=== PATIENT | female | born 2000 | race Caucasian/White ===

== ENCOUNTER 2022-03-06 15:01 | Emergency (ER) | payer BC, SELFPAY ==
[2022-03-06 15:17] VITALS: BP 104/63; PULSE 102; RESP 18; TEMP 36.8; O2SAT 99; BMI 22.1
[2022-03-06 18:17] LABS: Basophils Absolute Auto 0.03 K/uL (0.00-0.30); Basophils Percent Auto 0.5 % (0.0-3.0); Eosinophils Absolute Auto 0.09 K/uL (0.00-0.50); Eosinophils Percent Auto 1.6 % (0.0-7.0); Hematocrit 40.7 % (33.0-51.0); Hemoglobin* 13.8 gm/dL (12.0-16.0); Immature Granulocytes Abs Auto 0.01 K/uL (0.00-0.30); Lymphocytes Absolute Auto 1.92 K/uL (0.90-2.90); Lymphocytes Percent Auto 33.2 % (20-44); Mean Corpuscular HGB Conc 34 gm/dL (32-36); Mean Corpuscular Hemoglobin 30 pg (26-34); Mean Corpuscular Volume 88 fL (80-100); Monocytes Percent Auto 6.6 % (0.0-11.0); Neutrophils Absolute Auto 3.36 K/uL (1.7-7.0); Neutrophils Percent Auto 57.9 % (42.0-72.0); Platelet Count* 251 K/uL (140-440); RDW Coefficient of Variation % 11.9 % (11.5-15.5); Red Blood Count 4.64 m/uL (4.00-5.20); White Blood Count* 5.79 K/uL (4.50-11.00)
[2022-03-06 18:21] LABS: Slide Review Reflex No
[2022-03-06 18:31] LABS: Albumin* 4.6 g/dL (3.3-5.0); Chloride* 101 mmol/L (96-114)
[2022-03-06 18:32] LABS: Potassium* 3.8 mmol/L (3.6-5.1); Sodium* 138 mmol/L (135-149)
[2022-03-06 18:34] LABS: Bilirubin Total* 0.2 mg/dL (0.1-1.5); Carbon Dioxide* 30 mmol/L (20-32); Creatinine* 0.7 mg/dL (0.5-1.5); Est. Creatinine Clearance* 105.16; Estimated Glomerular Filt Rate 126 ml/min; Total Protein* 7.4 g/dL (6.0-8.3)
[2022-03-06 18:35] LABS: Alanine Aminotransferase* 9 U/L (4-35); Alkaline Phosphatase* 65 U/L (40-150); Aspartate Amino Transferase* 21 U/L (12-35); Blood Urea Nitrogen* 10 mg/dL (5-24); Calcium* 8.9 mg/dL (8.4-10.6); Glucose* 83 mg/dL (60-115)
[2022-03-06 18:48] LABS: D Dimer Quantitative* < 0.27 ug/ml (0.00-0.50); Troponin I* < 0.01 ng/mL (0.01-0.04)
[2022-03-06 19:00] VITALS: BP 104/73; TEMP 35.9
--- NOTE | 2022-03-06 19:30 | ED_ITS ---
HPI - Chest Pain General Chief Complaint: Chest Pain Stated Complaint: Chest Pains - 2 days or longer Time Seen by Provider: 03/06/22 17:12 Source: patient Mode of arrival: ambulatory Limitations: no limitations History of Present Illness HPI narrative: Taniya is a 21-year-old female patient presents emergency department with complaints of chest pain for approximately 2 days. The patient reports the pain as tightness, with pain associated with deep inspiration. Patient has no significant past medical history for coronary artery disease, prior [place], for respiratory condition like asthma or COPD. She has no significant family history. The patient reports that the pain occurs both at rest and with exertion. She describes the pain as sharp and stabbing when it occurs. She finds positioning leaning forward more comforting. The patient denies radiation of pain into her left or right shoulders, neck, or jaw. She has had no associated nausea, vomiting, or cough. She has recently been evaluated by her [facility] provider and was diagnosed with POTS. She has been scheduled for follow-up with Cardiology for further evaluation. She denies other evaluation or treatment for this concern. Risk Factors Coronary artery disease risk factors: none Thoracic aortic dissection risk factors: none Related Data On Oral Contraceptives: No Home Medications Medication Instructions Recorded Confirmed ammonium lactate 12 % topical cream applic topical 02/14/22 02/14/22 brexpiprazole 1 mg tablet (Rexulti) 1 mg PO QDAY 02/14/22 02/14/22 dextroamphetamine-amphetamine 10 10 mg PO BID 02/14/22 02/14/22 mg tablet dextroamphetamine-amphetamine ER 20 PO DAILY 02/14/22 02/14/22 20 mg 24hr capsule,extend release levonorgestrel 20.1 mcg/24 hrs (6 19.5 intrauterine 02/14/22 02/14/22 yrs) 52 mg intrauterine device trazodone 50 mg tablet mg PO .Bedtime 02/14/22 02/14/22 venlafaxine 150 mg 2 mg PO DAILY 02/14/22 02/14/22 capsule,extended release 24 hr Allergies Allergy/AdvReac Type Severity Reaction Status Date / Time No Known Allergies Allergy Verified 02/14/22 10:58 Review of Systems Const Denies: fever, chills, fatigue or malaise ENMT Denies: throat pain, ear pain, nasal discharge or nasal congestion Cardio Reports: chest pain; Denies: palpitations, swelling of feet/ankles or shortness of breath with exertion Resp Reports: pain on inspiration; Denies: shortness of breath or cough GI Reports: nausea (Chronic for patient not changed with recent symptoms; history of MJ use); Denies: abdominal pain, vomiting, diarrhea or constipation Neuro Denies: difficulty communicating thoughts Psych Reports: anxiety Endo Denies: fatigue PFSH PFSH Surgical History No history of previous surgery Family History Mother Breast cancer, Onset Age: 45 Mental disorder Father Mental disorder Social History Narrative: exercise involving walking- daily non-smoker single, has boyfriend, Jovan [address] Italian/Pakistani/Linguistics, no kids social drinker- 1/week Smoking Status: Never smoker Do you use any of these nicotine containing products: None Second hand tobacco smoke exposure: Yes (as child) How often do you have a drink containing alcohol: never How many standard drinks containing alcohol do you have on a typical day: 1 or 2 AUDIT-C Alcohol total score: 0 Non-prescribed substance use: denies use Exam Const Vital Signs, click to edit/add: Vital Signs - 24 hr 03/06/22 15:17 Temperature 98.2 F Pulse Rate [Right Pulse Oximeter] 102 H Respiratory Rate 18 Blood Pressure [Right Upper Arm] 104/63 Pulse Oximetry 99 Oxygen Delivery Method Room Air Documenting provider has reviewed patient's vital signs: yes Common normals: no apparent distress, oriented x3, no limitations, healthy appearing, alert and well nourished General appearance: cooperative, comfortable and well developed; not in distress Orientation/consciousness: Yes awake, Yes oriented to person, Yes oriented to place and Yes oriented to time [facility] Common normals: normocephalic, head/scalp atraumatic, hearing grossly normal bilaterally and external ears normal Head and scalp: normocephalic and atraumatic Face and sinus: normal facial exam (limited by masking) External ear: external ears normal Eye Common normals: EOMs intact bilaterally General eye: normal appearance of both eyes Neck & C-Spine Common normals: full ROM, no lymphadenopathy and supple Chest Common normals: inspection of chest normal and palpation of chest normal Resp Common normals: normal respiratory effort, no retractions, no use of accessory muscles and clear to auscultation bilaterally Effort & inspection: able to speak in complete sentences Auscultation: clear to auscultation bilaterally Cardio Common normals: regular rate, regular rhythm, S1 normal heart sound, S2 normal heart sound, no gallops, no clicks, no murmurs and peripheral pulses 2+ throughout Rate: regular rate Rhythm: regular rhythm Heart sounds: S1 normal and S2 normal Peripheral pulses: pulses 2+ throughout GI Common normals: Normal to inspection, nondistended, normoactive bowel sounds present, soft to palpation and non-tender Palpation: soft Extremity Common normals: normal to inspection, full ROM, normal capillary refill, no clubbing, cyanosis or edema and no pedal edema Neuro Common normals: oriented x3 Sensorium/orientation: awake, alert, oriented to person, oriented to place and oriented to time Speech: speech normal Gait (neuro): normal gait Motor exam: no movement abnormalities noted Psych Common normals: mental status grossly normal, thought process normal, speech normal and activity/motor behavior normal Appearance: grossly normal Speech: normal speech Thought process: normal thought process Thought content: normal thought content Attention/concentration: attention grossly intact Memory/cognition: memory grossly intact Insight: insight good Judgement: judgment good Skin Common normals: no rashes or lesions noted General skin exam: no rashes or lesions noted Course Course Hospital Course: Taniya presented to the emergency department for concerns of chest pain. She had laboratory studies drawn for evaluation of cardiac, pulmonary, and infectious etiology. Her EKG was negative. Her laboratory studies were negative. She has had no recurrent pain while in the emergency department. She has been reassured. She has been encouraged to keep her cardiology appointment for further evaluation. Reevaluation(s) Reevaluation #1: Patient reports no significant symptoms while in the emergency department. Patient's vital signs have remained stable, and orthostatics were negative. The results were discussed, and the patient verbalized understanding. Reasons for follow-up or return were discussed. Time: 19:36 Vital Signs Vital signs: Initial Vital Signs Temperature 98.2 F 03/06/22 15:17 Temperature Source Temporal Artery Scan 03/06/22 15:17 Pulse Rate 102 H 03/06/22 15:17 Respiratory Rate 18 03/06/22 15:17 Blood Pressure 104/63 03/06/22 15:17 Blood Pressure Mean 76 03/06/22 15:17 Blood Pressure Position Sitting 03/06/22 15:17 Pulse Oximetry 99 03/06/22 15:17 Oxygen Delivery Method 03/06/22 15:17 Vital Signs Temperature 98.2 F 03/06/22 15:17 Pulse Rate 102 H 03/06/22 15:17 Respiratory Rate 18 03/06/22 15:17 Blood Pressure 104/63 03/06/22 15:17 Pulse Oximetry 99 03/06/22 15:17 Oxygen Delivery Method 03/06/22 15:17 Temperature 98.2 F 03/06/22 15:17 Pulse Rate 102 H 03/06/22 15:17 Respiratory Rate 18 03/06/22 15:17 Blood Pressure 104/63 03/06/22 15:17 Pulse Oximetry 99 03/06/22 15:17 Oxygen Delivery Method 03/06/22 15:17 MDM - Chest Pain MDM Narrative Medical decision making narrative: During evaluation of this patient, I consider multiple differential diagnoses. The life-threatening differential diagnoses: CAD/KS, PE, pneumothorax, pneumonia, and aortic dissection. Other differential diagnoses include but are not limited to: infectious or inflammatory findings, pericarditis, myocarditis, chest wall pain, GERD, esophageal rupture, as well as other etiologies. Medical Records Data Attestation: I reviewed the patient's medical records. Lab Data Attestation: I reviewed the patient's lab results. Labs: Lab Results 03/06/22 03/06/22 03/06/22 Range/Units 17:50 17:50 17:50 WBC 5.79 (4.50-11.00) K/uL RBC 4.64 (4.00-5.20) m/uL Hgb 13.8 (12.0-16.0) gm/dL Hct 40.7 (33.0-51.0) % MCV 88 (80-100) fL MCH 30 (26-34) pg MCHC 34 (32-36) gm/dL RDW Coeff of Severiano 11.9 (11.5-15.5) % Plt Count 251 (140-440) K/uL Neut % (Auto) 57.9 (42.0-72.0) % Lymph % (Auto) 33.2 (20-44) % Dade % (Auto) 6.6 (0.0-11.0) % Eos % (Auto) 1.6 (0.0-7.0) % Baso % (Auto) 0.5 (0.0-3.0) % Neut # (Auto) 3.36 (1.7-7.0) K/uL Lymph # (Auto) 1.92 (0.90-2.90) K/uL Dade # (Auto) 0.40 (0.00-0.90) K/UL Eos # (Auto) 0.09 (0.00-0.50) K/uL Baso # (Auto) 0.03 (0.00-0.30) K/uL Abs Immat Gran (auto) 0.01 (0.00-0.30) K/uL D-Dimer Quant (PE/DVT) < 0.27 (0.00-0.50) ug/ml Sodium 138 (135-149) mmol/L Potassium 3.8 (3.6-5.1) mmol/L Chloride 101 (96-114) mmol/L Carbon Dioxide 30 (20-32) mmol/L BUN 10 (5-24) mg/dL Creatinine 0.7 (0.5-1.5) mg/dL Estimated Creat Clear 105.16 Estimated GFR 126 ml/min Glucose 83 (60-115) mg/dL Calcium 8.9 (8.4-10.6) mg/dL Total Bilirubin 0.2 (0.1-1.5) mg/dL AST 21 (12-35) U/L ALT 9 (4-35) U/L Alkaline Phosphatase 65 (40-150) U/L Troponin I < 0.01 L (0.01-0.04) ng/mL Total Protein 7.4 (6.0-8.3) g/dL Albumin 4.6 (3.3-5.0) g/dL ECG Data Attestation: I personally reviewed and interpreted this ECG as follows: (Normal axis. Normal sinus rhythm. 61 beats per minute. Normal intervals with QT at upper limit of normal. No significant ST-T wave changes. No previous EKG noted.) Discharge Plan Discharge Clinical Impression: Anxiety, Chest pain made worse by breathing, POTS (postural orthostatic tachycardia syndrome) Patient Disposition: Home, Self-Care Condition: Stable Instructions: Noncardiac Chest Pain (ED) Additional Instructions: Physical assessment, labs, imaging, and EKGs completed and resulted as noted. Agreeable to plan for recommendation the patient be followed outpatient with cardiology appointment scheduled. You do not have multiple risk factors for ACS. Did discuss this at length with patient explained risk and benefits of evaluation. Discussed you are low risk. You should return to the emergency department if condition worsens (chest pain, shortness of breath or further sweaty spells) and/or as needed. Activity Level: No Restrictions and Activity as Tolerated Activity Detail: Consider not using marijuana products as that may contribute to chronic nausea. Discharge Diet: Regular and Heart Healthy (2 gm sodium, low fat) Prescriptions: No Action levonorgestrel 20.1 mcg/24 hrs (6 yrs) 52 mg intrauterine device 19.5 intrauterine ammonium lactate 12 % cream topical dextroamphetamine-amphetamine 20 mg capsule,extended release 24hr 20 PO DAILY venlafaxine 150 mg capsule,extended release 24hr 2 mg PO DAILY dextroamphetamine-amphetamine 10 mg tablet 10 mg PO BID trazodone 50 mg tablet PO .Bedtime Rexulti 1 mg tablet 1 mg PO QDAY Follow Up/Referrals: Tiffani Yost MD [Primary Care Provider] - Stand Alone Forms: [employer] Info Instructions
== END 2022-03-06 19:50 | disposition home or self-care (01) ==
PROVIDERS: Emergency Provider Family Medicine; PCP Family Medicine
DX: F41.9 Anxiety disorder, unspecified (principal); R07.1 Chest pain on breathing; I49.8 Other specified cardiac arrhythmias
CPT/HCPCS: 36415; 80053; 84484; 85025; 85379; 93005; 99284; 99285

== ENCOUNTER 2022-04-02 14:49 | Outpatient (CLI) | payer BC, SELFPAY ==
--- OUTSIDE RECORDS SUMMARY | 2022-04-02 15:15 | XMS_ITS | Clinical Summary ---
:2000 Author Organization [facility] [place] [address] Care Team Providers Name Role Phone Unavailable Primary Care Provider Unavailable Allergies No known active allergies Medications Medication Sig Dispensed Refills Start Date End Date Status dextroamphetamine-amphe 0 05/15/2021 Active tamine (ADDERALL) 10 mg tablet traZODone (DESYREL) 50 TAKE 1/2 TO 3 0 04/22/2021 Active mg tablet TABLETS BY MOUTH AT BEDTIME venlafaxine (EFFEXOR 0 05/28/2021 Active XR) 75 mg cp24 Extended-Release capsule venlafaxine (EFFEXOR 0 05/17/2021 Active XR) 150 mg Extended-Release capsule brexpiprazole (Rexulti) Take 8 Tablets 0 03/22/2022 Active 0.25 mg tablet (2 mg) by mouth once daily. metoprolol tartrate Take 1 Tablet 180 Tablet 3 03/23/2022 Active (LOPRESSOR) 25 mg (25 mg) by mouth tabletIndications: two times daily. Heart palpitations sodium chloride 1 gram Take 2 Tablets 360 Tablet 3 03/23/2022 Active tabletIndications: (2 g) by mouth Heart palpitations two times daily. Active Problems No known active problems Encounters Date Type Specialty Care Team Description 04/02/2022 Orders Only <No scans attac hed> 03/23/2022 Office Visit Morgan Michelle MD Arrived from Last 3 Months Immunizations Name Administration Dates Next Due Influenza, IIV4 05/08/2021 Social History Tobacco Use Types Packs/Day Years Used Date Never Smoker Smokeless Tobacco: Never Used Alcohol Use Standard Drinks/Week Comments Not Currently 0 (1 standard drink = 0.6 oz pure alcoho l) Sex Assigned at Date Recorded Not on file Obstetrics History Last Filed Vital Signs Vital Sign Reading Time Taken Comments Blood Pressure 98/52 03/23/2022 8:59 AM CDT Pulse 86 03/23/2022 8:59 AM CDT Temperature - - Respiratory Rate 14 03/23/2022 8:59 AM CDT Oxygen Saturation - - Inhaled Oxygen Concentration - - Weight - - Height - - Body Mass Index - - Plan of Treatment Health Maintenance Due Date Last Done Comments HPV series for age 9-26 (1 - 2011 2-dose series) Tdap 2011 Chlamydia for age 16-24 2016 BMI (ht and wt on same day) 2018 for age 18+ Hepatitis C screening for age 0108/03/2018 18-79 Tetanus booster 2020 Influenza for age 9-49 03/22/2022 05/08/2021 Depression screening for age 1105/30/2022 05/30/2021 12+ Pap test for age 21-65 08/04/2024 08/04/2021, 08/04/2021 COVID-19 vaccine series Completed 06/02/2021, 10/28/2020 Meningococcal series for age Aged Out No longer eligible based - on patient's age to complete this to pic Results Not on filefrom Last 3 Months Insurance Payer Benefit Plan / Subscriber ID Effective Dates Phone Addre ss Type Group [employer] [place] [employer] [id number] 2020-Present [address] [address] [place] [address]
== END 2022-04-02 14:50 | disposition home or self-care (01) ==
LOC: RAD 14:51
PROVIDERS: PCP Family Medicine; Visit Provider Internal Medicine Cardiovascular Disease
DX: I49.8 Other specified cardiac arrhythmias (principal); I34.0 Nonrheumatic mitral (valve) insufficiency
CPT/HCPCS: 93306

== ENCOUNTER 2023-02-23 14:18 | Emergency (ER) | payer BC, SELFPAY ==
[2023-02-23 14:35] VITALS: BP 103/68; PULSE 87; RESP 16; TEMP 36.6; O2SAT 97; BMI 30.1
--- NOTE | 2023-02-23 15:10 | ED_ITS ---
HPI - Back Pain/Injury General Chief Complaint: Back Injury/Pain Stated Complaint: Back pain 6 days Time Seen by Provider: 02/23/23 14:31 History of Present Illness HPI Narrative: This 22-year-old female reports mid to low back pain for the past 6 or 7 days. She does not report any particular injury event or strenuous activity but states that she did moved to a new living location a few days before this pain arose. She does not report a prior history of back pain. She states that the pain does not radiate down either leg. The pain is still present but is relieved when lying at rest. The pain is worsened when bending forward. Related Data Home Medications Medication Instructions Recorded Confirmed ammonium lactate 12 % topical cream applic topical 02/14/22 03/23/22 brexpiprazole 1 mg tablet (Rexulti) 1 mg PO QDAY 02/14/22 02/23/23 dextroamphetamine-amphetamine 10 10 mg PO BID 02/14/22 02/23/23 mg tablet dextroamphetamine-amphetamine ER 20 mg PO DAILY 02/14/22 02/23/23 20 mg 24hr capsule,extend release levonorgestrel 20.4 mcg/24 hrs (8 19.5 intrauterine 02/14/22 03/23/22 yrs) 52 mg intrauterine device trazodone 50 mg tablet mg PO .Bedtime 02/14/22 03/23/22 venlafaxine 150 mg 150 mg PO DAILY 02/14/22 02/23/23 capsule,extended release 24 hr clonidine HCl 0.1 mg 0.1 mg PO DAILY 02/23/23 02/23/23 tablet,extended release,12 hr Previous Rx's Medication Instructions Recorded cyclobenzaprine 10 mg tablet 10 mg PO TID #15 tabs 02/23/23 ketorolac 10 mg tablet 10 mg PO Q8H 5 days #15 tabs 02/23/23 methylprednisolone 4 mg tablets in See Rx Instructions PO .COMPLEX 02/23/23 a dose pack (Medrol (David)) #21 ea Allergies Allergy/AdvReac Type Severity Reaction Status Date / Time No Known Allergies Allergy Verified 02/23/23 14:54 Review of Systems Status of ROS: Reports: 10 or more systems reviewed and unremarkable except as noted in History and below Narrative: Constitutional: No fevers, no weight gain or loss. Eyes: No discharge. No vision changes. HENT: No congestion, no sore throat, no ear pain. Cardiovascular: No chest pain, no palpitations. Respiratory: No shortness of breath, no wheezes, no cough. Gastrointestinal: No abdominal pain, no vomiting, no diarrhea. Genitourinary: No dysuria, no hematuria. Musculoskeletal: Normal range of motion. Low back pain as described above. Skin: No rashes, no pruritis. Neurological: No dizziness, weakness, sensory change, speech change. Endo/Heme/Allergies: No bruising or bleeding. No polydipsia. Pysch: no suicidality, no anxiety, no insomnia. All other systems reviewed and are negative. 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 HEENT: Normocephalic, atraumatic. Neck: Normal range of motion. Nontender. Supple. Heart: Regular. No murmurs. Normal rate. Intact distal pulses. Lungs: Clear to auscultation. No chest discomfort. No wheezes, rhonchi, or rales. Abdomen: Normal bowel sounds. Nontender. No rebound tenderness. Genitalia: Deferred. Back: No midline tenderness. Normal range of motion. Pain is located in the mid to lower back and is diffuse bilaterally without midline tenderness of the spine. Extremities: Normal range of motion. No injury. Skin: Intact. No rash. Warm. No erythema or pallor. Neurologic: No altered sensation. No weakness. Alert and oriented. Psychiatric: No suicidality. No anxiety or depression. No insomnia. Nursing notes and vitals signs are reviewed. Const: Vital Signs, click to edit/add: Vital Signs - 24 hr 02/23/23 14:35 Temperature 97.8 F Pulse Rate [Pulse Oximeter] 87 Respiratory Rate 16 Blood Pressure [Ri ght Upper Arm] 103/68 Pulse Oximetry 97 Oxygen Delivery Me thod Room Air Course Vital Signs Vital signs: Initial Vital Signs Temperature 97.8 F 02/23/23 14:35 Temperature Source Temporal Artery Scan 02/23/23 14:35 Pulse Rate 87 02/23/23 14:35 Respiratory Rate 16 02/23/23 14:35 Blood Pressure 103/68 02/23/23 14:35 Blood Pressure Mean 79 02/23/23 14:35 Blood Pressure Position Sitting 02/23/23 14:35 Pulse Oximetry 97 02/23/23 14:35 Oxygen Delivery Method Room Air 02/23/23 14:35 Vital Signs Temperature 97.8 F 02/23/23 14:35 Pulse Rate 87 02/23/23 14:35 Respiratory Rate 16 02/23/23 14:35 Blood Pressure 103/68 02/23/23 14:35 Pulse Oximetry 97 02/23/23 14:35 Oxygen Delivery Method Room Air 02/23/23 14:35 Temperature 97.8 F 02/23/23 14:35 Pulse Rate 87 02/23/23 14:35 Respiratory Rate 16 02/23/23 14:35 Blood Pressure 103/68 02/23/23 14:35 Pulse Oximetry 97 02/23/23 14:35 Oxygen Delivery Method Room Air 02/23/23 14:35 MDM - Back Pain/Injury MDM Narrative Medical decision making narrative: This patient comes in with back pain that is likely related to muscle strain. She did not have a mechanism of injury that would indicate need for imaging at this time. I did encourage stretching and strengthening activities as tolerated. She did received prescriptions for Toradol, Flexeril, and Medrol Dosepak. I advised her to follow-up with our spine clinic if not improving. Discharge Plan Discharge Clinical Impression: Low back pain Patient Disposition: Home, Self-Care Condition: Stable Additional Instructions: Take medication as prescribed. Gentle stretching and strengthening is recommended. Increase activity as tolerated. Follow up with Spine Clinic if not improving. Call [phone] for appointment. Prescriptions: New cyclobenzaprine 10 mg tablet 10 mg PO TID Qty: 15 0RF ketorolac 10 mg tablet 10 mg PO Q8H 5 Days Qty: 15 0RF methylprednisolone [Medrol (David)] 4 mg tablets,dose pack See Rx Instructions .ROUTE .COMPLEX Qty: 21 0RF Rx Instructions: orally per package directions No Action levonorgestrel 20.1 mcg/24 hrs (6 yrs) 52 mg intrauterine device 19.5 intrauterine ammonium lactate 12 % cream topical dextroamphetamine-amphetamine 20 mg capsule,extended release 24hr 20 mg PO DAILY Hold Instructions: pt forgets venlafaxine 150 mg capsule,extended release 24hr 150 mg PO DAILY Hold Instructions: pt forgets dextroamphetamine-amphetamine 10 mg tablet 10 mg PO BID Hold Instructions: pt forgets trazodone 50 mg tablet PO .Bedtime Rexulti 1 mg tablet 1 mg PO QDAY Hold Instructions: pt forgets clonidine HCl 0.1 mg tablet extended release 12 hr 0.1 mg PO DAILY Follow Up/Referrals: Tiffani Yost MD [Primary Care Provider] - Stand Alone Forms: [employer] Info Instructions
[2023-02-23 15:31] VITALS: BP 115/67; PULSE 65
== END 2023-02-23 15:30 | disposition home or self-care (01) ==
LOC: ED 15:19
PROVIDERS: Emergency Provider Emergency Medicine Emergency Medical Services; PCP Family Medicine
DX: M54.50 Low back pain, unspecified (principal)
CPT/HCPCS: 99283; 99284

== ENCOUNTER 2023-03-01 13:28 | Outpatient (CLI) | payer BC, SELFPAY | END 2023-03-01 13:29 | disposition home or self-care (01) | LOC: NFLDREF 03-03 09:00 | PROVIDERS: PCP Family Medicine; Referring Provider Family Medicine; Visit Provider Family Medicine | DX: Z01.419 Encounter for gynecological examination (general) (routine) without abnormal findings (principal); E66.9 Obesity, unspecified; Z13.6 Encounter for screening for cardiovascular disorders | CPT/HCPCS: 80053; 80061 ==

== ENCOUNTER 2023-03-05 16:55 | Outpatient (CLI) | payer BC, SELFPAY | END 2023-03-05 16:56 | disposition home or self-care (01) | LOC: NFLDREF 03-13 07:33 | PROVIDERS: PCP Family Medicine; Referring Provider Family Medicine; Visit Provider Nurse Practitioner Family | DX: Z00.00 Encounter for general adult medical examination without abnormal findings (principal); F41.9 Anxiety disorder, unspecified; F32.A Depression, unspecified; E66.9 Obesity, unspecified; F50.9 Eating disorder, unspecified; F90.9 Attention-deficit hyperactivity disorder, unspecified type; G47.00 Insomnia, unspecified; F12.90 Cannabis use, unspecified, uncomplicated; F43.10 Post-traumatic stress disorder, unspecified; Z62.812 Personal history of neglect in childhood; Z79.899 Other long term (current) drug therapy | CPT/HCPCS: 82306; 84443 ==

== ENCOUNTER 2023-08-27 15:38 | Outpatient (CLI) | payer BC, SELFPAY ==
--- OUTSIDE RECORDS SUMMARY | 2023-08-27 15:42 | XMS_ITS | Clinical Summary ---
Author Name Unknown Organization [facility] Address [place], [place] [address] Care Team Providers Care Final Touch Up Painter Name Role Phone Tiffani Yost MD Primary Care Provider + Allergies No known active allergies Medications Medication Sig Dispensed Refills Start Date End Date Status venlafaxine (EFFEXOR XR) 75 mg cp24 Extended-Release capsule 0 05/28/2021 Active sodium chloride 1 gram tabletIndications:He art palpitations Take 2 Tablets (2 g) by mouth two times daily. 360 Tablet 3 03/23/2022 Active metoprolol succinate (Toprol XL) 50 mg sustained-release tabletIndications:Di zziness,Heart palpitations,Tachyca rdia Take 1 Tablet (50 mg) by mouth once daily. 90 Tablet 3 05/02/2022 Active ammonium lactate 12% topical (LACHYDRIN) 12 % lotion Apply topically to affected area(s) two times daily. 225 g 0 04/17/2023 Active cloNIDine HCL (CATAPRES) 0.1 mg tablet Take 1 Tablet (0.1 mg) by mouth once daily. 0 04/17/2023 Active dextroamphetamine-am phetamine (ADDERALL) 20 mg tablet Take 1 Tablet (20 mg) by mouth once daily. 0 04/17/2023 Active hydrOXYzine HCL (ATARAX) 25 mg tablet Take 1-2 Tablets (25-50 mg) by mouth 4 times daily if needed. 0 04/17/2023 Active traZODone (DESYREL) 100 mg tablet Take 1 Tablet (100 mg) by mouth at bedtime. 0 04/17/2023 Active venlafaxine (EFFEXOR XR) 150 mg Extended-Release capsule Take 1 Capsule (150 mg) by mouth once daily with evening meal. 0 04/17/2023 Active Active Problems No known active problems Immunizations Name Administration Dates Next Due Influenza, IIV4 05/08/2021 Social History Tobacco Use Types Packs/Day Years Used Date Smoking Tobacco: Never Smokeless Tobacco: Never Alcohol Use Standard Drinks/Week Comments Not Currently 0 (1 standard drink = 0.6 oz pur e alcohol) PHQ-2 Answer Date Recorded PHQ-2 TOTAL SCORE 2 05/30/2021 Social Connections Answer Date Recorded Frequency of Communication with Friends and Fami ly Not on file 07/22/2021 Financial Resource Strain Answer Date R ecorded Difficulty of Paying Living Expenses Not on file 07/22/2021 Difficulty of Paying Living Expenses Not on file 07/22/2021 Sex and Gender Information Value Date Recorded Sex Assigned at Not on file Gender Identity Not on file Sexual Orientation Not on file Obstetrics History Last Filed [...] HPV series for age 9-26 (1 - 2-dose series) 2011 Tdap 2011 HIV for age 15-65 2015 Chlamydia for age 16-24 2016 BMI (ht and wt on same day) for age 18+ 2018 Hepatitis C screening for ag e 18-79 2018 Tetanus booster 2020 Depression screening for age 12+ 05/30/2022 05/30/2021 COVID-19 vaccine series ( - 2022- season) 2023 04/14/2022, 06/02/2021, 10/28/2020 Influenza for age 9-49 03/22/2023 05/08/2021 Pap test for age 21-65 08/04/2024 2, 08/04/2021 Pneumococcal series for age 6-64 Aged Out No longer eligible b ased on patient's age to complete this topic Care Teams Final Touch Up Painter Relationship Specialty Start Date End Date Tiffani Yost MD [address] [place] [address] PCP - General Family Practice 04/02/22
== END 2023-08-27 15:39 | disposition home or self-care (01) ==
PROVIDERS: PCP Family Medicine; Visit Provider Registered Nurse
DX: N92.6 Irregular menstruation, unspecified (principal); Z13.29 Encounter for screening for other suspected endocrine disorder
CPT/HCPCS: 84146; 84443

== ENCOUNTER 2023-09-16 15:44 | Outpatient (CLI) | payer BC, SELFPAY ==
--- NOTE | 2023-09-16 16:00 | US_ITS ---
Patient: SYLVAIN KAISER Facility:?[facility] Patient ID:?[id number] Site Patient ID:?[id number]. Site :?[id number] Study:?US-Pelvis TA/TV-09/16/2023 4:33:04 PM Ordering Physician:DOV Final Report: INDICATION: Abnormal uterine bleeding. TECHNIQUE: Transabdominal and transvaginal pelvic ultrasound. FINDINGS: Uterus is anteverted and measures 7.7 x 3.0 x 4.4 cm. There is an IUD that appears appropriately positioned within the uterus. Endometrial stripe thickness is difficult to precisely characterized but measures proximally 2 mm. Both ovaries appear normal and normal color delete doppler flow. Incidental dominant follicle in the right ovary. IMPRESSION: 1. IUD appears appropriately positioned. 2. Normal pelvic ultrasound. Dictated by Adis Espinal MD @ 09/17/2023 9:08:18 AM Signed by:?Adis Espinal MD @09/17/2023 9:08:18 AM (Electronic Signature)
== END 2023-09-16 15:45 | disposition home or self-care (01) ==
PROVIDERS: PCP Family Medicine; Visit Provider Registered Nurse
DX: N92.6 Irregular menstruation, unspecified (principal)
CPT/HCPCS: 76830; 76856; 84270; 84402; 84403

== ENCOUNTER 2023-11-13 06:37 | Day surgery (SDC) | payer BC, SELFPAY ==
[2023-11-13] VITALS (11 sets, daily range): BP systolic 92–113; BP diastolic 46–72; PULSE 51–68; RESP 12–16; TEMP 36.2–36.8; O2SAT 94–98; BMI 31.7
--- OUTSIDE RECORDS SUMMARY | 2023-11-13 06:39 | XMS_ITS | Clinical Summary ---
Author Name Unknown Organization [facility] Address [place], [place] [address] Care Team Providers Care Studio Data Analyst Name Role Phone Tiffani Yost MD Primary Care Provider + Allergies No known active allergies Medications Medication Sig Dispensed Refills Start Date End Date Status venlafaxine (EFFEXOR XR) 75 mg cp24 Extended-Release capsule 05/28/2021 Active sodium chloride 1 gram tabletIndications:He [...] affected area(s) two times daily. 225 g 04/17/2023 Active cloNIDine HCL (CATAPRES) 0.1 mg tablet Take 1 Tablet (0.1 mg) by mouth once daily. 0 04/17/2023 Active dextroamphetamine-am phetamine (ADDERALL) 20 mg tablet Take 1 Tablet (20 mg) by mouth once daily. 04/17/2023 Active hydrOXYzine HCL (ATARAX) 25 mg tablet Take 1-2 Tablets (25-50 mg) by mouth 4 times daily if needed. 0 04/17/2023 Active traZODone (DESYREL) 100 mg tablet Take 1 Tablet (100 mg) by mouth at bedtime. 04/17/2023 Active venlafaxine (EFFEXOR XR) 150 mg [...] Health Maintenance Due Date Last Done Comments Tdap 2011 HIV for age 15-65 2015 HPV series for age 9-26 (1 - 3-dose series) 2015 Chlamydia for age 16-24 2016 BMI (ht and wt on same day) for age 18+ 2018 Hepatitis C screening for ag e 18-79 2018 Tetanus booster 2020 Depression screening for age 12+ 05/30/2022 05/30/2021 COVID-19 vaccine series ( - 2022- season) 2023 04/14/2022, 06/02/2021, 10/28/2020 Influenza for age 9-49 03/22/2024 05/08/2021 Pap test for age 21-65 08/04/2024 2, 08/04/2021 Pneumococcal series for age 6-64 Aged Out No longer eligible b ased on patient's age to complete this topic Procedures Procedure Name Priority Date/Time Associated Diagnosis Comments HPV THIN PREP Routine 08/04/2021 3:20 PM CUT OFF [facility] from Last 3 Months or Most Recently Relevant to Health Maintenance Results * HPV HIGH RISK (08/04/2021 3:20 PM CUT OFF [facility]) TYPE 16 Negative Negative 08/09/2021 1:42 PM CUT OFF [facility] TYPE 18 Negative Negative 08/09/2021 1:42 PM CUT OFF [facility] OTHER HIGH RISK TYPES Negative Negative 08/09/2021 1:42 PM CUT OFF [facility] Other (Cervical/Vagina l) 08/04/2021 3:20 PM CUT OFF [facility] 08/08/2021 7:46 AM CUT OFF [facility] Narrative [facility] - 08/09/2021 1:42 PM CUT OFF [facility] HPV types 16, 18, 31, 33, 35, 39, 45, 51, 52, 56, 58, 59, 66 and 68 DNA were undetectable or below the pre-set threshold. Methodology: Luna Eileen 4800 HPV Test Tiffani Yost MD [facility] [address] [place] [address], from Last 3 Months or Most Recently Relevant to Health Maintenance Care Teams Studio Data Analyst Relationship Specialty Start Date End Date Tiffani Yost MD [address] [place] [address] PCP - General Family Practice 04/02/22
[2023-11-13 07:30] LABS: Ur HCG Qualitative* Negative (Negative)
[2023-11-13] MEDS: SODIUM CHLORIDE 0.9 % (FLUSH) 10 ML SYRINGE IVF (07:40)
[2023-11-13] MEDS: LACTATED RINGERS 1000 ML 1,000 ML 100 ML IV (07:40)
--- NOTE | 2023-11-13 08:14 | W.PM.H&PU ---
History & Physical Update History & Physical Update H&P Reviewed and patient assessed: No changes noted
[2023-11-13] MEDS: BUPIVACAINE 0.25% 30 ML INJECTION (08:57)
--- NOTE | 2023-11-13 09:36 | W.ANESCHARGE ---
Anesthesia Charges Start Date/Time Anesthesia Start Date: 11/13/23 Anesthesia Start Time: 08:14 Stop Date/Time Anesthesia Stop Date: 11/13/23 Anesthesia Stop Time: 09:33
--- NOTE | 2023-11-13 09:49 | W.ANESCHARGE ---
Anesthesia Charges Start Date/Time Anesthesia Start Date: 11/13/23 Anesthesia Start Time: 08:14 Stop Date/Time Anesthesia Stop Date: 11/13/23 Anesthesia Stop Time: 09:33
--- NOTE | 2023-11-13 10:02 | SUR.PHASEI ---
patient meets pacu d/c criteria
--- NOTE | 2023-11-13 15:33 | W.PM.GYNPROC ---
Procedure Note Date of procedure: 11/13/23 Will [facility] bill your pro fee for this procedure?: Yes Pre-op diagnosis: Undesired fertility IUD in place Post-op diagnosis: Undesired fertility Stage I endometriosis Procedure: Laparoscopy with bilateral salpingectomy and excision of endometriosis Removal of IUD Anesthesia: GETA Complications: None Surgeon: Serina Johnson MD Estimated blood loss (mL): 5 IV fluids (mL): 900 Urine Output (mL): 50 Pathology: specimen obtained, sent to pathology (1. Bilateral Fallopian tubes. 1. Biopsy left uterosacral ligament. I confirmed my request to send these specimens at time of post-operative debrief. ) Condition: stable Disposition: same day Findings: 1. Upon pelvic exam under anesthesia, the cervix and vagina were normal in appearance. Uterus was mobile and anteverted, of normal size and texture. There were no palpable adnexal masses. 2. Upon laparoscopy, survey of the upper abdomen revealed a normal appearance to the inferior edge of the liver, gallbladder and stomach. Bowels were grossly normal appearance, as was the appendix. Survey of the pelvis revealed normal appearance to the uterus. Bilateral tubes and ovaries were normal in appearance. There was a 1 mm powder burn lesion on the proximal left uterosacral ligament. Otherwise, the cul-de-sac and bladder reflection were normal in appearance. Procedure Description: Patient was taken to the operating room with IV running. She was positioned in dorsal lithotomy position with her legs fully supported in Yellofin stirrups. General anesthesia was administered. She was prepped and draped in the usual sterile fashion. Bimanual exam was performed for the above-noted findings. Speculum was inserted. The IUD in string was noted at the external os. This was grasped with ring forceps and easily removed with gentle traction. A single-toothed uterine manipulator was inserted through the cervix into the lower uterine segment, and affixed to the anterior cervical lip. Speculum was removed. Hernandez catheter was placed. Patient's legs were placed in neutral position. Attention was turned to patient's abdomen. The infraumbilical area was infiltrated with small amount of Marcaine. An infraumbilical incision was made with a scalpel and carried through to the underlying layer of fascia with a hemostat. The 5 mm Fios Kii trocar was assembled with laparoscope within, and insufflator attached. While tenting up the abdomen manually, the trocar was passed through the anterior abdominal wall into the peritoneal cavity. Trocar was removed. Pneumoperitoneum was achieved. Survey of abdomen and pelvis revealed the above-noted findings. Two additional port sites were created. The first was in the patient's left lower quadrant, just superior medial to the left ASIS. The second was a hand's breath superior to and slightly medial to the first. Each was infiltrated with small amount of Marcaine prior to incision. A 5 mm incision was made at each site, making sure the large vessels were out of harm's way. A 5 mm Fios Kii port was inserted at each site, under direct visualization and without complication. The balloon on each of these ports was inflated, holding each in place. Attention was 1st turned to the right fallopian tube, which was held away from the pelvic sidewall. The LigaSure device was used to divide the blood supply of the distal portion of the right fallopian tube. The LigaSure was used to transect the mesosalpinx, moving laterally to medially, into the uterine cornua was reached. The tube was cauterized and transected at the cornua. Hemostasis was noted. This was sent to pathology. This procedure was repeated on the patient's left side. Hemostasis was again noted. The above described macule on the proximal left uterosacral ligament was grasped with [place] laparoscopic forceps and excised sharply. Hemostasis was noted. The balloons of all port sites were deflated. All instruments were removed from the ports and pneumoperitoneum was released. The skin of each port site was closed with a subcuticular stitch of 4-0 Monocryl. Surgical glue was applied above this. The patient's legs were placed backed in lithotomy position. The uterine manipulator was removed. Speculum was inserted. Hemostasis of the cervix was noted. Speculum was removed. Hernandez catheter was removed. Patient tolerated procedure well and was taken to recovery area in stable condition.
== END 2023-11-13 11:57 | disposition home or self-care (01) ==
PROVIDERS: PCP Family Medicine; Visit Provider Obstetrics & Gynecology
PROC: (CPT 58661; principal; 2023-11-13 08:00)
DX: Z30.2 Encounter for sterilization (principal); Z30.432 Encounter for removal of intrauterine contraceptive device; N80.3C9 Endometriosis of the uterosacral ligament(s), unspecified side, unspecified depth
CPT/HCPCS: 58661; 58662; 58301; 00840; 00851; 36415; 81025; 86850; 86900; 86901; 88302; 88305; J0665; J1100; J1630; J1885; J2250; J2405; J2704; J2710; J3010; J7120

== ENCOUNTER 2024-05-05 10:56 | Outpatient (CLI) | payer BC, SELFPAY ==
--- OUTSIDE RECORDS SUMMARY | 2024-05-05 11:03 | XMS_ITS | Encounter Summary ---
Author Organization [facility] Address [address] [address] Phone Care Team Providers Care Rcis Name Role Phone Unavailable Primary Care Provider Unavailabl e Reason for Visit * Reason Comments Toe Problem Pain, drainage from near the toenail of right great toe, noticed yesterday Encounter Details Date Type Department Care Team (Late st Contact Info) Description 03/15/2024 10:20 AM CDT Office Visit [facility] [address] [place] [address] Jackie Torres, BRANDON [address] [place] [address] Paronychia of great toe of left foot (Primary Dx) Social History Tobacco Use Types Packs/Day Years Used Date Smoking Tobacco: Never Passive Smoke Exposure: Past Smokeless Tobacco: Never Tobacco Cessation:Counseling Given: Not Answered PHQ-2 Answer Date Recorded PHQ-2 Total 0 03/15/2024 Sex and Gender Information Value Date Recorded Sex Assigned at Not on file Gender Identity Not on file Sexual Orientation Not on file Job Start Date Occupation Industry Not on file Not on file Not on file documented as of this encounter Last Filed Vital Signs Vital Sign Reading Time Taken Comments Blood Pressure 93/62 03/15/2024 10:43 AM CDT Pulse 70 03/15/2024 10:43 AM CDT Temperature 36.7 ??C (98 ??F) 03/15/2024 10: 43 AM CDT Respiratory Rate 14 03/15/2024 10:4 3 AM CDT Oxygen Saturation 98% 03/15/2024 10: 43 AM CDT Inhaled Oxygen Concentration - - Weight 87.5 kg (192 lb 14.4 oz) 024 10:43 AM CDT Height - - Body Mass Index - - documented in this encounter Ordered Prescriptions Prescription Sig Dispensed Refills Start Date End Da te cephALEXin (Keflex) 500 MG capsuleIndications:Infe ction Take 1 Capsule by mouth three times a day for 7 days. Indications: Infection 21 Capsule 03/15/2024 03/22/2024 documented in this encounter Progress Notes * Jackie Torres PA-C - 03/15/2024 10:20 AM CDT Chief Complaint Patient presents with Toe Problem Pain, drainage from near the toenail of right great toe, noticed yesterday History of Present Ilness Taniya Pepper is a 23 year old female who presents to the Urgent Care today with her fiance for left great toe pain. Taniya notes that she has a history of several ingrown toenails and has to trim them quite frequently. She believes to have cut her left great toenail too aggressively and caused infection around thenail. She states that for the last 2 to 3 days, she has been experiencing redness, swelling, pain, and drainage at the lateral edge of the left great toenail. She has not attempted any treatments up to this time, but has been keeping it clean and dry. She otherwise denies any recent fevers, chills,numbness, tingling of the left foot. No past medical history on file. Current Outpatient Medications Medication Sig Dispense Refill ammonium lactate (Lac-Hydrin) 12 % Lotion Apply topically two times a day. Adderall XR 20 MG 24 hour capsule TAKE 1 CAPSULE BY MOUTH DAILY FOR ADHD busPIRone (Buspar) 10 MG tablet Take 10 mg by mouth two times a day. clonidine ER (KAPVAY) 0.1 MG Tablet Extended Release 12 Hour Take 0.1 mg by mouth one time a day. metoprolol succinate (Toprol-XL) 50 MG 24 hour extended-release tablet Take 50 mg by mouth one timea day. rizatriptan (Maxalt-REFRIGERATION ENGINEER) 10 MG disintegrating tablet sodium chloride 1 GM tablet Take 2 g by mouth two times a day. cephALEXin (Keflex) 500 MG capsule Take 1 Capsule by mouth three times a day for 7 days. Indications: Infection 21 Capsule 0 traZODone (Desyrel) 100 MG tablet TAKE 1 TO 3 TABLETS BY MOUTH AT BEDTIME FOR SLEEP venlafaxine (Effexor-XR) 150 MG 24 hour extended release capsule TAKE 2 CAPSULES BY MOUTH DAILY WITH A MEAL No current facility-administered medications for this visit. Not on File Review of Systems: See HPI for relevent ROS items. Physicial Exam: Vitals: 03/15/24 1043 BP: 93/62 Pulse: 70 Resp: 14 Temp: 36.7 ??C (98 ??F) TempSrc: Oral SpO2: 98% Weight: 87.5 kg (192 lb 14.4 oz) GENERAL APPEARANCE: Pleasant, non-toxic appearing female. No acute distress. HEAD: Atraumatic. EYES: conjunctiva and sclera without injection; no mattering. SKIN: On the left great toe at the lateral edge of the toenail, there is erythema, tenderness, induration. There is no obvious fluctuance or drainage apparent, but there is scabbing present. ASSESSMENT: (L03.032) Paronychia of great toe of left foot (primary encounter diagnosis) PLAN: - Reviewed the likely diagnosis with the patient. Her left great toe symptoms are consistent with aparonychia. Discussed topical nonpharmacologic treatments to attempt. Due to current symptoms and drainage, we will proceed with antibiotics at this time. - Begin cephalexin 500 mg by mouth 3 times daily for 7 days for treatment of infection. Side effects and risks of the medication were reviewed today with the patient. - Discussed signs and symptoms that would indicate need for further evaluation and treatment. Should symptoms worsen, recommend following up with primary care provider at home. Taniya is in agreement with the above assessment and plan and indicates they understand it. All questions were answered to patient's apparent satisfaction. Indications for urgent re-evaluation reviewed and benefits counselor given. Discussed to contact Urgent Care or Primary Care Provider with any worsening or no improvement in symptoms. Jackie Torres PA-C documented in this encounter Plan of Treatment Not on file documented as of this encounter Visit Diagnoses Diagnosis Paronychia of great toe of left foot- Primary Onychia and paronychia of toe documented in this encounter Historical Medications * This list may reflect changes made after this encounter. Medication Sig Dispensed Refills Start Date End Date venlafaxine (Effexor-XR) 150 MG 24 hour extended release capsule TAKE 2 CAPSULES BY MOUTH DAILY WITH A MEAL traZODone (Desyrel) 100 MG tablet TAKE 1 TO 3 TABLETS BY MOUTH AT BEDTIME FOR SLEEP sodium chloride 1 GM tablet Take 2 g by mouth two times a day. 03/23/2022 rizatriptan (Maxalt-REFRIGERATION ENGINEER) 10 MG disintegrating tablet 12/01/2023 metoprolol succinate (Toprol-XL) 50 MG 24 hour extended-release tablet Take 50 mg by mouth one time a day. 05/02/2022 clonidine ER (KAPVAY) 0.1 MG Tablet Extended Release 12 Hour Take 0.1 mg by mouth one time a day. 12/01/2023 busPIRone (Buspar) 10 MG tablet Take 10 mg by mouth two times a day. 01/01/2024 Adderall XR 20 MG 24 hour capsule TAKE 1 CAPSULE BY MOUTH DAILY FOR ADHD 02/17/2024 ammonium lactate (Lac-Hydrin) 12 % Lotion Apply topically two times a day. 04/17/2023 added in this encounter
--- OUTSIDE RECORDS SUMMARY | 2024-05-05 11:03 | XMS_ITS | Referral Summary ---
Author Organization [facility] Address [address] [place] [address] Care Team Providers Care Elementary Summer School Teacher Name Role Phone Unavailable Primary Care Provider Unavailabl e Source Comments Patient records contain information from all sites at [facility]. For routine questions regarding patient records, call [phone] during business hours, M-F 8:00 AM - 5:00 PM Central Time. Record requests for emergency care only can be directed to [phone] at any time.[facility] Allergies No known active allergies Medications No known medications Active Problems No known active problems Social History Tobacco Use Types Packs/Day Years Used Date Smoking Tobacco: Never Tobacco Cessation:Counseling Given: Not Answered Dental Answer Date Recorded Dental: Regular Dentist Unknown 11/16/19 24 Comments No Sex and Gender Information Value Date Recorded Sex Assigned at Not on file Legal Sex Female 10:24 PM CDT Gender Identity Not on file Sexual Orientation Not on file Last Filed Vital Signs Vital Sign Reading Time Taken Comments Blood Pressure 111/95 11/16/2023 11:30 PM CDT Pulse 72 11/16/2023 11:45 PM CDT Temperature 36.9 ??C (98.4 ??F) 11/16/2023 10:33 PM C DT Respiratory Rate 18 11/16/2023 10:33 PM CDT Oxygen Saturation 98% 11/16/2023 11:45 PM CDT Inhaled Oxygen Concentration - - Weight 85 kg (187 lb 6.3 oz) 11/16/2023 10:32 PM CDT Height - - Body Mass Index - - Plan of Treatment Not on file Insurance [facility]
--- OUTSIDE RECORDS SUMMARY | 2024-05-05 11:03 | XMS_ITS ---
Author Organization [facility] Address [address] [place] [address] Care Team Providers Care Kettle Fry Cook Operator Name Role Phone Unavailable Unavailable Unavailable Surgery Details Not on file Complications Check Surgery Details section. Procedure Estimated Blood Loss Check Surgery Details section. Procedure Findings Check Surgery Details section. Procedure Specimens Taken Check Surgery Details section.
--- OUTSIDE RECORDS SUMMARY | 2024-05-05 11:03 | XMS_ITS | Clinical Summary ---
Author Organization [facility] Address [address] [address] Phone Care Team Providers Care Account Service Representative Name Role Phone Unavailable Primary Care Provider Unavailabl e Medications Medication Sig Dispensed Refills Start Date End Date Status ammonium lactate (Lac-Hydrin) 12 % Lotion Apply topically two times a day. 04/17/2023 Active Adderall XR 20 MG 24 hour capsule TAKE 1 CAPSULE BY MOUTH DAILY FOR ADHD 02/17/2024 Active busPIRone (Buspar) 10 MG tablet Take 10 mg by mouth two times a day. 01/01/2024 Active clonidine ER (KAPVAY) 0.1 MG Tablet Extended Release 12 Hour Take 0.1 mg by mouth one time a day. 12/01/2023 Active metoprolol succinate (Toprol-XL) 50 MG 24 hour extended-release tablet Take 50 mg by mouth one time a day. 05/02/2022 Active rizatriptan (Maxalt-BOILER HOUSE INSPECTOR) 10 MG disintegrating tablet 12/01/2023 Act dina sodium chloride 1 GM tablet Take 2 g by mouth two times a day. 03/23/2022 Active traZODone (Desyrel) 100 MG tablet TAKE 1 TO 3 TABLETS BY MOUTH AT BEDTIME FOR SLEEP Active venlafaxine (Effexor-XR) 150 MG 24 hour extended release capsule TAKE 2 CAPSULES BY MOUTH DAILY WITH A MEAL Active Active Problems No known active problems Encounters Date Type Department Care Team Description 03/15/2024 10:20 AM CDT Office Visit [facility] [address] [place] [address] Jackie Torres PA-C Paronychia of great toe of left foot (Primary Dx) 03/15/2024 Travel from Last 3 Months Social History Tobacco Use Types Packs/Day Years [...] file Not on file Not on file Obstetrics History Last Filed [...] Health Maintenance Due Date Last Done Comments Cervical Cancer Screening 2000 Last pap w/ HPV Testing 2000 Last pap w/o HPV Testing 2000 HPV Vaccine (Standing Order) (1 - 3-dose series) 2015 Chlamydia Screening 2016 Hepatitis B Vaccine (Standing Order) (1 of 3 - 19+ 3-dose series) 2019 PERTUSSIS (Standing Order) 2019 TETANUS (Standing Order) 2019 COVID-19 Vaccine (2022- season) 2024 04/14/2022, 06/02/2021, 10/28/2020 Influenza Vaccine Seasonal (Standing Order) (#1) 2024 Pneumococcal/PCV20 Vaccine: Pediatrics (2-5 yrs) and At-Risk Patients (6-64 yrs) (Standing Order) Aged Out No longer eligible b ased on patient's age to complete this topic
--- OUTSIDE RECORDS SUMMARY | 2024-05-05 11:03 | XMS_ITS | Clinical Summary ---
Author Organization [facility] Address [address] [place] [address] Care Team Providers Care Jigger Artisan Name Role Phone Unavailable Primary Care Provider Unavailabl e Source Comments Patient records contain information from all sites at [facility]. For routine questions regarding patient records, call [phone] during business hours, M-F 8:00 AM - 5:00 PM Central Time. Record requests for emergency care only can be directed to [phone] at any time.[facility] Allergies No known active allergies Medications No [...] Plan of Treatment Not on file Insurance [facility]
--- OUTSIDE RECORDS SUMMARY | 2024-05-05 11:03 | XMS_ITS | Encounter Summary ---
Author Organization [facility] Address [address] [address] Phone Care Team Providers Care Test Developer Name Role Phone Unavailable Primary Care Provider Unavailabl e Encounter Details Date Type Department Care Team (Latest Contact Info) Description 03/15/2024 Travel Social History Tobacco Use Types Packs/Day Years Used Date Smoking Tobacco: Never Passive Smoke Exposure: Past Smokeless Tobacco: Never PHQ-2 Answer Date Recorded PHQ-2 Total 0 03/15/2024 Sex and Gender Information Value Date Recorded Sex Assigned at Not on file Gender Identity Not on file Sexual Orientation Not on file Job Start Date Occupation Industry Not on file Not on file Not on file documented as of this encounter Plan of Treatment Not on file documented as of this encounter Visit Diagnoses Not on filedocumented in this encounter
[2024-05-05 13:27] LABS: Chlamydia DNA Amplified* NOT DETECTED (No Detected); GC DNA Amplified* NOT DETECTED (No Detected)
== END 2024-05-05 10:57 | disposition home or self-care (01) ==
PROVIDERS: PCP Family Medicine; Visit Provider Family Medicine
DX: Z12.4 Encounter for screening for malignant neoplasm of cervix (principal); Z11.3 Encounter for screening for infections with a predominantly sexual mode of transmission
CPT/HCPCS: 87491; 87591; 87624; 87625; 88141; 88142

== ENCOUNTER 2024-12-03 08:32 | Outpatient (CLI) | payer BC, SELFPAY | END 2024-12-03 08:33 | disposition home or self-care (01) | LOC: NFLDREF 08:35 | PROVIDERS: PCP Family Medicine; Visit Provider Family Medicine | DX: G90.A Postural orthostatic tachycardia syndrome [POTS] (principal) | CPT/HCPCS: 80048 ==

== ENCOUNTER 2024-12-22 07:09 | Day surgery (SDC) | payer BC, SELFPAY ==
[2024-12-22] VITALS (22 sets, daily range): BP systolic 96–118; BP diastolic 58–80; PULSE 69–89; RESP 16–24; TEMP 36.1–36.4; O2SAT 92–97; BMI 38.2
[2024-12-22 07:38] LABS: Ur HCG Qualitative* Negative (Negative)
[2024-12-22] MEDS: ACETAMINOPHEN 500 MG TABLET 1000 MG PO (07:45)
[2024-12-22] MEDS: SCOPOLAMINE 1 MG/3 DAY PATCH 1 PATCH TRANSDERMA (07:45)
[2024-12-22] MEDS: GABAPENTIN 600 MG TABLET PO (07:45)
[2024-12-22] MEDS: SODIUM CHLORIDE 0.9 % (FLUSH) 10 ML SYRINGE IVF (08:00)
[2024-12-22] MEDS: LACTATED RINGERS 1000 ML 1,000 ML 100 ML IV ×2 (08:00→10:24)
[2024-12-22 08:21] LABS: Hemoglobin* 13.4 gm/dL (12.0-16.0)
[2024-12-22 08:36] LABS: Creatinine* 0.9 mg/dL (0.5-1.5); Est. Creatinine Clearance* 76.23; Estimated Glomerular Filt Rate 92 ml/min
[2024-12-22] MEDS: CEFAZOLIN 2 GM INJ IVP (09:00)
--- NOTE | 2024-12-22 09:15 | P.NB_ITS ---
Nerve Block Nerve Block Time Seen by Provider: 08:55 Date Seen: 12/22/24 Type of block requested by surgeon for post-operative analgesia: TAP Side: bilateral Time out performed: Yes Verification of patient name: Yes Verification of date of : Yes Site marking: site marked Name of person performing procedure: Pedro Mckeon Continuous monitoring Was continuous monitoring of O2 sat, B/P, cardiac technician, recorded every 15 minutes?: Yes Procedure Checklist: sterile prep, needles and gloves Ultrasound guided. Images saved: Yes Medications given in 5ml increments after negative aspiration: Marcaine %: 0.25 mL: 30 Needle gauge: 20 and Exparel mL: 10 Needle gauge: 20 Patient tolerated procedure well: Yes Additional comments: Injected in 5ml increments after negative aspiration Block Charges Block Charge (with Pro Fee): TAP Bilateral Use of Ultrasound Machine for Block: Yes- US Guidance/pain block
--- NOTE | 2024-12-22 09:16 | P.ANES_ITS ---
Anesthesia Charges Start Date/Time Anesthesia Start Date: 12/22/24 Anesthesia Start Time: 08:30 Stop Date/Time Anesthesia Stop Date: 12/22/24 Anesthesia Stop Time: 11:02 Coding CPT Codes CPT Codes: ANESTH SURG LOWER ABDOMEN - 82746 ([id number]) P3 - PATIENT W/SEVERE SYS DISEASE, QK - CEMENT TESTER ASSISTANT 2-4 CNCRNT ANES PROC, QX - PROPERTY CONTROLLER SVC W/ MD MED DIRECTION
--- NOTE | 2024-12-22 09:16 | W.ANESCHARGE ---
Anesthesia Charges Start Date/Time Anesthesia Start Date: 12/22/24 Anesthesia Start Time: 08:30 Stop Date/Time Anesthesia Stop Date: 12/22/24 Anesthesia Stop Time: 11:02 Coding CPT Codes CPT Codes: ANESTH SURG LOWER ABDOMEN - 16641 ([id number]) P3 - PATIENT W/SEVERE SYS DISEASE, QK - B2B SALES EXECUTIVE 2-4 CNCRNT ANES PROC, QX - HEALTH OUTCOMES LIAISON SVC W/ MD MED DIRECTION
--- NOTE | 2024-12-22 10:41 | SUR.OPER ---
PATIENT QUESTIONS ANSWERED SATISFACTORILY PREOPERATIVELY. PATIENT BROUGHT TO OR #4 PER CART. Patient positioned supine on OR #4 bed for the intubation. Pt. then moved into the lithotomy position for the procedure. Perioperative team padded and tucked the arms at pt. sides in a neutral position. ? Final approval of positioning by surgeon.
--- NOTE | 2024-12-22 11:06 | P.ANES_ITS ---
Anesthesia Charges Start Date/Time Anesthesia Start Date: 12/22/24 Anesthesia Start Time: 08:30 Stop Date/Time Anesthesia Stop Date: 12/22/24 Anesthesia Stop Time: 11:02 Coding CPT Codes CPT Codes: ANESTH SURG LOWER ABDOMEN - 19334 ([id number]) QK - SUPERVISOR SAFETY DEPOSIT 2-4 CNCRNT ANES PROC, QX - PLANT HR MANAGER SVC W/ MD MED DIRECTION, P3 - PATIENT W/SEVERE SYS DISEASE
--- NOTE | 2024-12-22 11:06 | W.ANESCHARGE ---
Anesthesia Charges Start Date/Time Anesthesia Start Date: 12/22/24 Anesthesia Start Time: 08:30 Stop Date/Time Anesthesia Stop Date: 12/22/24 Anesthesia Stop Time: 11:02 Coding CPT Codes CPT Codes: ANESTH SURG LOWER ABDOMEN - 18957 ([id number]) QK - RESEARCH ASSISTANT 2-4 CNCRNT ANES PROC, QX - FLEET ADMINISTRATIVE ASSISTANT SVC W/ MD MED DIRECTION, P3 - PATIENT W/SEVERE SYS DISEASE
--- NOTE | 2024-12-22 11:16 | W.PM.GYNPROC ---
Procedure Note Date of procedure: 12/22/24 Will [facility] bill your pro fee for this procedure?: Yes Pre-op diagnosis: Endometriosis on previous laparoscopy Dysmenorrhea Post-op diagnosis: Dysmenorrhea No endometriosis visualized Procedure: Total laparoscopic hysterectomy Cystoscopy Anesthesia: GETA Complications: None Surgeon: Serina Johnson MD Nursing Clinical Director: Apple Valiente Estimated blood loss (mL): 10 Pathology: specimen obtained, sent to pathology (Uterus and cervix) Condition: stable Disposition: PACU Findings: 1. Upon pelvic exam under anesthesia, the cervix and vagina were normal in appearance. Uterus was mobile and anteverted, of normal size and texture. There were no palpable adnexal masses. 2. Upon laparoscopy, survey of the upper abdomen revealed a normal appearance to the inferior edge of the liver, gallbladder and stomach. Bowels were grossly normal appearance, as was the appendix. Survey of the pelvis revealed normal appearance to the uterus. Bilateral tubes were surgically absent. Bilateral ovaries were normal in appearance. The cul-de-sac and bladder reflection were normal in appearance. Procedure Description: PROCEDURE IN DETAIL: Patient was taken to the operating room with IV running. She received cefazolin in preoperative prophylaxis. She was positioned in dorsal lithotomy position with her legs fully supported in Yellofin stirrups. General anesthesia was administered. She was prepped and draped in the usual sterile fashion. Pelvic exam under anesthesia was performed for the above-noted findings. Speculum was inserted. Cervix visualized and grasped along its anterior lip with a single-tooth tenaculum. Cervix was dilated with Hegar dilators to accommodate the VCare uterine manipulator. A small-sized colpotomizer cup was selected. The tip of the uterine manipulator was inserted through the cervix into the uterine cavity and the balloon was inflated. The speculum was removed. The colpotomy cup was advanced, surrounding the cervix, and the proximal occluder was moved up along the shaft of the VCare and fixed in place. Hernandez catheter was placed. Patient's legs were then placed in neutral position. Attention was turned to patient's abdomen. A 5 mm infraumbilical incision was made with a scalpel and carried down to the underlying layer of fascia with the hemostat. 5 mm camera was placed within the 5 mm Fios Kii trocar, and advanced under direct visualization through the anterior abdominal wall into the peritoneal cavity, while tenting up the anterior abdominal wall. The trocar was removed. The balloon was inflated, holding the port in place. Pneumoperitoneum was achieved. Survey of the abdomen and pelvis revealed the above-noted findings. Three additional port sites were created. The first was in the patient's left lower quadrant, just superomedial to the left ASIS. The second was a hand's breadth superior to and slightly medial to the first. The third was in the patient's right lower quadrant, just superomedial to the right ASIS. An 11 mm incision was made in the left lower quadrant, and a 5 mm incision was made at the other 2 sites, after assuring that large vessels were out of harm's way. An 11 mm Fios Kii port was inserted at the left lower quadrant site, and a 5 mm Fios Kii port at each of the other 2 sites, under direct visualization and without complication. The balloon on each of the four ports was inflated, holding each in place. The left round ligament was cauterized and transected with the Thunderbeat device. The utero-ovarian ligament was cauterized and transected, and the remnants of the right broad ligament were cauterized and transected between these two structures. The bladder flap was created on the patient's left side, moving laterally to medially. The left uterine artery was cauterized and transected with the Thunderbeat device. Using the colpotomizer cup as a guide, the peritoneum and underlying stroma was dissected off the anticipated site of colpotomy over the posterior vaginal fornix. Attention was then turned to the right side of the uterus, where the right round ligament was cauterized and transected with the Thunderbeat device. The right utero-ovarian ligament was cauterized and transected, and the remnants of the right round ligament were cauterized and transected between these two structures. The bladder flap was created on the patient's right side, and dissection was carried laterally to medially, meeting the dissection where it had left off from the patient's right side. The right uterine artery was cauterized and transected with the Thunderbeat device. The bladder reflection was moved well below the colpotomizer cup anteriorly. The vaginal fornix was then entered posteriorly with the Thunderbeat device, using the colpotomizer cup as a guide. This device was moved along the circumference of the colpotomizer cup, until the uterus and cervix were freed from their attachments to the pelvis. The uterus was pulled into the patient's vagina, maintaining the pneumoperitoneum. Using laparoscopic needle drivers, the vaginal cuff was closed with a series of oxcyyl-ic-chutb sutures of O-Vicryl. These were placed and tied intracorporeally. Ports were left in place but all instruments were removed and pneumoperitoneum was released. Patient's legs were placed back in lithotomy position. The uterus was removed from the vagina and was sent to pathology for further analysis. Digital vaginal exam was performed, showing an intact cuff with no obvious active bleeding. The Hernandez catheter was removed from the bladder, and the cystoscope was assembled with saline inflow, outflow, and light cord in place. The patient was given IV sodium fluorescein prior to the cystoscopy. Cystoscope was advanced through the urethra into the bladder, and survey of the mucosa revealed a normal appearance. The bladder dome was intact. Bilateral ureteral jets were noted. Cystoscope was removed and Hernandez catheter replaced. Patient's legs were again placed in neutral position. Insufflator was reattached to the port and pneumoperitoneum again achieved. Survey of the pelvis revealed hemostasis. The 11 mm Fios Kii port in the left lower quadrant was removed after balloon on the port was deflated. The Pankaj-Héctor laparoscopic closure device was inserted through this port. With the help of this device, the fascia was closed with a single suture of 0-Vicryl. The balloons of all remaining port sites were deflated, and all ports were removed after pneumoperitoneum was released. The skin of each port site was closed in a subcuticular fashion with 4 0 Monocryl. Surgical glue was applied above this. Patient tolerated procedure well and was taken to recovery area in stable condition.
[2024-12-22] MEDS: fentaNYL 100 MCG/2 ML inj 50 MCG IVP (11:30)
--- NOTE | 2024-12-22 13:24 | SUR.PHASEII ---
Urinary catheter backfilled with 300 cc sterile water for bladder trial. Catheter d/c'd at 1420. Will monitor for pt void and let Dr. Johnson know results.
--- NOTE | 2024-12-22 13:55 | SUR.PHASEII ---
Pt up to bathroom and was able to void 300 cc after urinary catheter removed. Will inform Dr. Johnson of results.
== END 2024-12-22 14:39 | disposition home or self-care (01) ==
LOC: OR 07:11
PROVIDERS: PCP Family Medicine; Visit Provider Obstetrics & Gynecology
PROC: 0UT94ZZ Resection of Uterus, Percutaneous Endoscopic Approach (ICD-10-PCS; CPT 58570; principal; 2024-12-22 08:30)
DX: N94.6 Dysmenorrhea, unspecified (principal); N80.9 Endometriosis, unspecified; G89.18 Other acute postprocedural pain
CPT/HCPCS: 58570; 00840; 36415; 64488; 76942; 81025; 82565; 85018; 86850; 86900; 86901; A4314; A9270; J0330; J0665; J0666; J0690; J1100; J1885; J2405; J2704; J3010; J3475; J3490; J7120